=== PATIENT | male | born 2000 | race Caucasian/White ===

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

== ENCOUNTER 2019-11-11 21:31 | Emergency (ER) | payer OTHER ==
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
[2019-11-11 23:31] VITALS: PULSE 79
[2019-11-11 23:35] VITALS: BP 147/88
--- NOTE | 2019-11-12 07:58 | CR ---
[id number] RAD/RAD Hand Right 3V EXAM: RAD Hand Right 3V CLINICAL DATA: TRAUMA COMPARISON: No previous similar exam is available. FINDINGS: A distal right fifth metacarpal fracture is seen with volar angulation of the distal fracture fragment. IMPRESSION: BOXER'S FRACTURE Christophe Watt MD 11/12/19 0758 Thank you for allowing us to participate in the care of your patient.
== END 2019-11-12 00:50 | disposition home or self-care (01) ==
LOC: VM.ED 21:31
DX: S62.336A Displaced fracture of neck of fifth metacarpal bone, right hand, initial encounter for closed fracture (principal); Z88.0 Allergy status to penicillin; Z88.2 Allergy status to sulfonamides; W22.8XXA Striking against or struck by other objects, initial encounter
CPT/HCPCS: 73130-RT; 99283-25